=== PATIENT | female | born 1990 | race Caucasian/White ===

== ENCOUNTER 2022-01-11 16:45 | Emergency (ER) | payer SELFPAY ==
[2022-01-11 17:06] VITALS: BP 108/72; PULSE 71; RESP 18; TEMP 98.1; BMI 21.5
[2022-01-11] MEDS ORDERED: KETOROLAC TROMETHAMINE 30 MG/1 ML VIAL IM ONE (18:56)
[2022-01-11] MEDS ORDERED: KETOROLAC TROMETHAMINE 30 MG/1 ML VIAL ONE (19:01)
[2022-01-11] MEDS ORDERED: CLINDAMYCIN HCL 150 MG CAPSULE (FP) PO ONE (19:22)
[2022-01-11] MEDS ORDERED: CLINDAMYCIN HCL 150 MG CAPSULE (FP) ONE (19:24)
== END 2022-01-11 19:42 | disposition home or self-care (01) ==
LOC: JER 16:45
PROC: 3E023GC Introduction of Other Therapeutic Substance into Muscle, Percutaneous Approach (ICD-10-PCS; principal; 2022-01-11)
DX: T81.40XA Infection following a procedure, unspecified, initial encounter (principal); R10.2 Pelvic and perineal pain
CPT/HCPCS: 99284-25